=== PATIENT | male | born 1960 | race Caucasian/White ===

== ENCOUNTER → 2017-08-16 | Outpatient (CLI) | payer OTHER ==
--- NOTE | ~2017-08-16 | P ---
[facility] [place] [address] PROCEDURE REPORT Name: MAVIS JOYCE [id number] Admission: 08/16/17 Attend Phys: Ortiz Eli Discharge: Date of : 60 Report #: [id number] THIS REPORT FOR: //name// CC: Ortiz Reyes DO DATE OF SERVICE: 08/16/2017 PROCEDURE PERFORMED: Upper endoscopy with biopsies. HISTORY OF PRESENT ILLNESS: The patient is a 56-year-old male who was seen in the office on with complaints of left upper quadrant intermittent abdominal pain and bloating, began in May of this year. He describes it as a pressure type discomfort, tends to be worse when in a sitting position and resolves when he is lying flat. He is taking Prilosec twice a day for gastroesophageal reflux disease. He denies any dysphagia or odynophagia. Last colonoscopy 9 years ago that was normal. Symptoms are somewhat worse after eating. Plan is for EGD and colonoscopy today. DESCRIPTION OF PROCEDURE: The risks and benefits of the procedure were explained to the patient, those risks including but not limited to bleeding, perforation, the risk of sedation. He understood these risks and gave informed consent. Sedation was given using propofol per anesthesia. Next, using a standard Omniatainon upper endoscope, the scope was placed in the patient's mouth and advanced under direct vision through the esophagus, stomach and into the second portion of the duodenum. The larynx was normal in appearance. The esophagus was normal throughout. The GE junction was normal. Overall, the gastric mucosa was normal. Biopsies were obtained to rule out H. pylori. The pylorus was normal and patent. The duodenal bulb, first and second portion were all normal. Biopsies were also obtained in the duodenum to rule out the possibility of celiac sprue. The scope was then withdrawn and the procedure terminated. The patient tolerated the procedure well. IMPRESSION: Normal upper endoscopy. RECOMMENDATIONS: 1. Await biopsy results. 2. We will proceed with colonoscopy next today. Thank you for allowing me to participate in his care. <ELECTRONICALLY SIGNED> By: Ortiz Marin MD 08/16/17 [id number] [id number] Ortiz Marin MD /nt
--- NOTE | ~2017-08-16 | S ---
[facility] [address] SURGICAL PATH RPT PROCEDURE Name: MAVIS GIL Room #: REG [facility].#: [id number] Admission: 08/16/17 Date of : 60 Discharge: Report #: [id number] Path Case #: [id number] PATHOLOGY REPORT COLLECTION DATE: 08/16/2017 RECEIVED DATE: 08/16/2017 SUBMITTING PHYS: Dr. Ortiz Marin OTHER PHYS: Dr. Jere Reyes SPECIMEN(S) RECEIVED: A.Bx of duodenum B.Bx of gastritis C.Random colon biopsies * * * * * * * * * * * * FINAL DIAGNOSIS: A. Duodenum, "biopsy of duodenum": - No diagnostic changes. - There is no evidence of acute cryptitis, granulomas, adenomatous change, sprue-like changes, or malignancy. B. Gastric, "biopsy gastritis": - Mild chronic reactive gastropathy with mild chronic inflammation. - The immunoperoxidase stain for Helicobacter pylori is negative. C. Colonic mucosa, "random colon biopsies": - No diagnostic changes. - There is no evidence of acute cryptitis, granulomas, adenomatous change, or malignancy. (SHA:; 08/19/2017) PATHOLOGIST: Marcus Escalona M.D. REPORT ELECTRONICALLY SIGNED BY: Marcus Escalona M.D. DATE/TIME: 08/19/2017 13:46 * * * * * * * * * * * * GROSS PATHOLOGY: A. Received in formalin labeled "Mavis Louise, BX of duodenum," are 3 segments of almeida soft tissue measuring 1.2 x 0.2 x 0.3 cm in aggregate dimensions and ranging from 0.3 to 0.5 cm in maximum dimension. The specimen is submitted entirely in cassette A1. B. Received in formalin labeled "Mavis Gil, BX of gastritis," are 3 segments of almeida soft tissue measuring 1.2 x 0.4 x 0.2 cm in aggregate dimensions and ranging from 0.2 to 0.6 cm in maximum dimension. The specimen is submitted entirely in cassette B1. C. Received in formalin labeled "Mavis Gil, random colon BX," are 4 segments of almeida soft tissue measuring 1.1 x 0.3 x 0.2 cm in aggregate dimensions and ranging from 0.2 to 0.4 cm in maximum dimension. The [address] [address] SURGICAL PATH RPT PROCEDURE Name: CHINEDU GILMiladis Prieto Room #: REG [facility].#: [id number] Admission: 08/16/17 Date of : 60 Discharge: Report #: [id number] Path Case #: [id number] specimen is submitted entirely in cassette C1. (TSD; 08/16/2017) CLINICAL HISTORY: Abdominal pain INITIAL CPT CODE(S): A; 28113 B; 43116, 31400 C; 01112 Professional services performed by [facility] at [address] , [place] [address] Technical services performed by [facility] at [address] [place] [address]., [address], [place] [address]. [facility] [address] [place] [address] PHONE: [phone] DIRECTOR: Mina Garcia M.D. * * * END OF REPORT * * *
--- NOTE | ~2017-08-16 | P ---
[facility] [place] [address] PROCEDURE REPORT Name: MARIA DEL CARMENMAVIS Koo Room #: REG [facility]#: [id number] Admission: 08/16/17 Attend Phys: Ortiz Eli Discharge: Date of : 60 Report #: [id number] THIS REPORT FOR: //name// CC: Ortiz Reyes DO DATE OF SERVICE: 08/16/2017 PROCEDURE PERFORMED: Colonoscopy with biopsies. HISTORY OF PRESENT ILLNESS: The patient is a 56-year-old male with intermittent left upper quadrant abdominal pain, already on Prilosec. EGD was just performed, which was normal. DESCRIPTION OF PROCEDURE: The risks and benefits of the procedure were explained to the patient. Those risks including but not limited to bleeding, perforation and the risk of sedation. He understood these risks and gave informed consent. Sedation was given using propofol per anesthesia. Next, a digital rectal exam was initially performed, which was normal. Next, using a standard Fujinon colonoscope, the scope was placed in the patient's anus and advanced under direct vision to the cecum. The overall prep was excellent. The cecum and ileocecal valve were normal in appearance. The terminal ileum was intubated and normal in appearance. The ascending, transverse, descending and sigmoid colon were all normal. Random biopsies were obtained to rule out the possibility of microscopic colitis. Rectal mucosa was normal. On retroflexion, no abnormalities were noted. The scope was then withdrawn and the procedure terminated. The patient tolerated the procedure well. IMPRESSION: Normal colonoscopy. RECOMMENDATIONS: Await biopsy results from EGD and colonoscopy today. If negative, consider ultrasound with Dopplers in the future. Thank you for allowing me to participate in his care. <ELECTRONICALLY SIGNED> By: Ortiz Marin MD 08/16/17 1151 [id number] [id number] Ortiz Marin MD /nt
== END ==
LOC: GI 07:10
DX: K31.89 Other diseases of stomach and duodenum (principal)
CPT/HCPCS: 62110; 62900